=== PATIENT | male | born 2005 | race Caucasian/White ===

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

== ENCOUNTER 2024-03-25 16:49 | Emergency (ER) | payer OTHER, SELFPAY ==
[2024-03-25 16:57] VITALS: BP 146/86; PULSE 96; O2SAT 97
--- NOTE | 2024-03-25 17:18 | ED.GENADULT ---
HPI - General Adult General Chief complaint: Wound/Laceration Stated complaint: thumb pain Source: patient and EMS Mode of arrival: EMS Limitations: no limitations History of Present Illness ED Provider: lizzie HPI narrative: Patient is a 18-year-old right hand dominant male presenting to the ED with complaint of pain and swelling around right thumb nail since this morning. States that he used a kitchen knife as well as his cat's nail to attempt to drain pus from the area. Admits to biting his nails regularly. Was not able to drain any fluid from the area. Denies fevers. MD complaint: thumb pain Onset (ago): hour(s) Treatments prior to arrival: other Related Data Home Medications ?Medication ?Instructions ?Recorded ?Confirmed benztropine 1 mg tablet 1 mg PO BID 02/10/23 09/14/23 clonidine HCl 0.2 mg tablet 0.4 mg PO BEDTIME 02/10/23 09/14/23 escitalopram oxalate 10 mg tablet 10 mg PO QAM 02/10/23 09/14/23 lisdexamfetamine 50 mg capsule 50 mg PO DAILY 02/10/23 09/14/23 (Vyvanse) trazodone 50 mg tablet 100 mg PO BEDTIME PRN insomnia 02/10/23 09/14/23 risperidone 2 mg tablet 2 mg PO BID 09/14/23 09/14/23 Previous Rx's ?Medication ?Instructions ?Recorded levetiracetam 500 mg tablet 500 mg PO BID #60 tabs 07/16/23 (Keppra) amoxicillin 875 mg-potassium 1 tab PO BID #13 tabs 03/25/24 clavulanate 125 mg tablet azithromycin 250 mg tablet 250 mg PO DAILY 4 days #4 tabs 03/25/24 Allergies Allergy/AdvReac Type Severity Reaction Status Date / Time aripiprazole [From Abilify] Allergy Unknown Verified 03/25/24 17:22 sulfamethoxazole Allergy Rash Verified 03/25/24 17:22 [From Bactrim] trimethoprim [From Bactrim] Allergy Rash Verified 03/25/24 17:22 Review of Systems Review of Systems: As per HPI. Yes all other systems are reviewed and are negative Constitutional: Constitutional: Reports as per HPI [facility] Past Medical History Medical History Asthma Depression ADHD (attention deficit hyperactivity disorder) Social History Social History Household Members: Family Household Members Other:: mother father, 2 siblings. Housing: House Do you presently have visiting nurse or other home services: No Unable to assess alcohol history related to: Unknown Alcohol intake: current Alcohol intake frequency: a few times a week Alcohol type: beer and hard liquor Patient Tobacco Use Status: Current everyday Tobacco user Tobacco use type: Cigarette Cigarette Packs Per Day: 1 Cigarettes Per Day: 20.0 Years Smoked: 1 year e-Cigarette/Vaping Use: Currently Using Second Hand Smoke Exposure: No Substance Use Type: Marijuana service: No Sexual orientation: Straight/Heterosexual Physical Exam ED Vital Signs: Vital signs have been reviewed and appear to be correct. Blood pressure normal. Heart rate normal. Respiratory rate normal. Temperature normal. Oxygen saturation normal. Const General: cooperative, healthy appearing and no acute distress Orientation/consciousness: oriented to person, oriented to place, oriented to time and patient oriented x3 Limitations: no limitations HENMT Head: Yes normocephalic and Yes atraumatic Ears: external ears normal General nose exam: Normal external nose present Face and sinus: Yes face symmetric Mouth: oropharynx normal and moist mucous membranes Throat: Yes uvula midline Eyes Pupils: Equal, round and reactive pupils present Neck Neck: Yes normal visual inspection and Yes supple Resp Effort & Inspection: normal respiratory effort and able to speak in complete sentences Auscultation: clear to auscultation bilaterally Cardio Rate: regular rate Rhythm: regular rhythm Heart sounds: S1 normal heart sound present and S2 normal heart sound present GI Palpation (GI): Soft to palpation and nontender Auscultation: normoactive bowel sounds General: Yes no CVA tenderness Back/Spine/Pelvis Back: no CVA tenderness Skin General skin exam: elasticity normal and turgor normal Neuro General: oriented to person, oriented to place, oriented to time, patient oriented x3, moves all extremities, no focal motor deficits and CN's II-XI intact bilaterally Cranial nerves: Yes Equal, round and reactive pupils present Cognition (Neuro): normal cognition Extrem General: Yes full ROM, Yes no pedal edema and Yes no calf tenderness Hand/finger images: 1. erythema and swelling, no fluctuance, no drainage Psych Mental Status: mental status grossly normal Affect: normal affect Thought process: Normal thought process present Medical Decision Making Medical Decision Making MDM Narrative: Patient is a 18-year-old right hand dominant male presenting to the ED with complaint of pain and swelling around right thumb nail since this morning. On exam patient is awake, A+Ox3, VS WNL, afebrile, normal neurological exam without focal deficits, physical exam findings as above. Given reported symptoms and physical exam findings, initial differential includes paronychia, cellulitis. Physical exam not consistent with felon. Given that patient utilized his cat's nail to attempt to drain the infection, will cover with augmentin as well as azithromycin. Instructed patient to soak finger in warm salt water several times daily, assess daily. Instructed him to complete full course of antibiotics even if symptoms improve. Medicated with 1st doses of antibiotics in the ED. Return precautions discussed. Patient verbalized understanding of and agreement plan. Differential Diagnosis Differential Diagnoses: The differential diagnosis associated with the presentation includes As per MDM. External Record Review External record reviewed: Inpatient record, Office record and Outpatient record Prescription Management I considered prescription management with: Antibiotic Discharge Plan Discharge Clinical Impression: Acute paronychia of right thumb Patient Disposition: Home, Self-Care Instructions: Paronychia (ED) Additional Instructions: You have been evaluated in the emergency department today for skin infection around your nail, also known as paronychia. If the area of inflammation was outlined today in the ER, please return to the ER immediately if the area of redness increases beyond the border. Assess the area at least once per day. n Please take both of your prescribed antibiotics as directed for the full course of the medication. We also recommend that you soak your thumb in warm salt water for 10-15 minutes several times daily. You can use Tylenol or ibuprofen per package instructions every 6 hours as needed for pain. If necessary, you can alternate these medications so that you can take one medication every 3 hours. For instance, at noon take ibuprofen, then at 3:00 p.m. take Tylenol, then at 6:00 p.m. take ibuprofen. Please schedule an appointment for follow-up with your primary care physician as soon as possible. Return to the emergency department if you experience recurrent vomiting, fevers greater than 100.4? F, increasing area of redness, warmth around the area, foul-smelling discharge from the area, increased tenderness around the area, or any other concerning symptoms. Prescriptions: New azithromycin 250 mg tablet 250 mg PO DAILY 4 Days Qty: 4 0RF Rx Instructions: start on day 2 of therapy amoxicillin-pot clavulanate 875-125 mg tablet 1 tab PO BID Qty: 13 0RF No Action levetiracetam [Keppra] 500 mg tablet 500 mg PO BID Qty: 60 3RF risperidone 2 mg tablet 2 mg PO BID clonidine HCl 0.2 mg tablet 0.4 mg PO BEDTIME benztropine 1 mg tablet 1 mg PO BID escitalopram oxalate 10 mg tablet 10 mg PO QAM lisdexamfetamine [Vyvanse] 50 mg capsule 50 mg PO DAILY trazodone 50 mg tablet 100 mg PO BEDTIME PRN (Reason: insomnia) Print Language: Greek
[2024-03-25 17:19] VITALS: BP 111/73; PULSE 88; RESP 16; TEMP 36.7; O2SAT 95; BMI 29.0
[2024-03-25] MEDS: Amoxicillin/Potassium Clav 875 MG TABLET PO (17:35)
[2024-03-25] MEDS: Azithromycin 500 MG TABLET PO (17:35)
[2024-03-25 17:39] VITALS: BP 111/73; PULSE 88; RESP 16; TEMP 36.7; O2SAT 95
== END 2024-03-25 17:40 | disposition home or self-care (01) ==
PROVIDERS: Emergency Provider Internal Medicine
DX: L03.011 Cellulitis of right finger (principal); M79.644 Pain in right finger(s)
CPT/HCPCS: 99282; 99283

== ENCOUNTER 2024-03-28 21:30 | Emergency (ER) | payer OTHER, SELFPAY ==
[2024-03-28 21:35] VITALS: BP 119/87; PULSE 91; RESP 20; TEMP 37.1; O2SAT 94; BMI 29.0
[2024-03-28 21:51] LABS: MANUAL DIFF FLAG NO
[2024-03-28 21:53] LABS: Basophils Percent Auto 0.4 % (0-2); Eosinophils Absolute Auto 0.4 X10*3/uL (0.0-0.4); Eosinophils Percent Auto 5.1 % (0-4); Hematocrit 39.4 % (42.0-52.0); Hemoglobin 13.6 g/dl (14.0-18.0); Imm Gran Abs Auto 0.03 X10*3/uL (0.00-0.03); Imm Gran Pct Auto 0.4 % (0.0-0.4); Lymphocytes Absolute Auto 1.3 X10*3/uL (1.2-4.9); Lymphocytes Percent Auto 16.2 % (20-40); Mean Corpuscular HGB Conc 34.5 g/dl (31.0-36.0); Mean Corpuscular Hemoglobin 31.6 pg (27.0-33.0); Mean Corpuscular Volume 91.4 fL (80.0-98.0); Monocytes Absolute Auto 0.4 X10*3/uL (0.1-1.2); Monocytes Percent Auto 5.3 % (2-11); Neutrophils Absolute Auto 5.9 x10*3/uL (2.0-8.3); Neutrophils Percent Auto 72.6 % (45-73); Platelet Count 166 X10*3/uL (160-400); Red Blood Count 4.31 X10*6/uL (4.60-5.80); Red Cell Distribution Width 12.4 % (11.0-16.0); White Blood Count 8.1 X10*3/uL (4.8-10.8)
[2024-03-28 22:09] LABS: Alanine Aminotransferase 12 U/L (0-40); Albumin Level 4.3 g/dL (3.5-5.0); Alkaline Phosphatase 68 U/L (39-117); Anion Gap 13 (12-20); Aspartate Amino Transferase 19 U/L (5-37); Bilirubin Total 0.4 mg/dL (0.0-1.0); Blood Urea Nitrogen 28 mg/dL (9-16); Carbon Dioxide 21 mmol/L (22-29); Chloride 108 mmol/L (96-108); Estimated Glomerular Filt Rate > 60; Glucose Random 124 mg/dL (60-115); Potassium 3.9 mmol/L (3.3-5.1); Sodium 138 mmol/L (135-145); Total Protein 6.9 g/dL (6.5-8.0)
[2024-03-28] MEDS: Acetaminophen 325 MG TABLET 650 MG PO (22:15)
[2024-03-28 23:51] VITALS: BP 124/63; PULSE 77; RESP 22; TEMP 36.8; O2SAT 97
--- NOTE | 2024-03-28 23:54 | PC.NURSE ---
Infection to right thumb. Pt states he was trying to drain pus from right thumb while on antibiotics and used the nail from his cat as a sharp object to do so. presents today with increased redness and swelling.
--- NOTE | 2024-03-29 00:45 | ED.EXTPRO ---
HPI - Extremity Problem General Chief complaint: Extremity Problem Stated complaint: right thumb infection/was here 03/23/24 Time Seen by Provider: 03/29/24 00:10 Source: patient Mode of arrival: ambulatory Limitations: no limitations History of Present Illness ED Provider: Dr. Pasha Quiroz HPI Narrative: 18-year-old male with a history of schizoaffective disorder, depressive type, nicotine dependence, ADHD who presents emergency department for evaluation of right thumb infection. Patient was seen in the emergency department on 03/25/2024 (3 days prior) paronychial cellulitis/abscess. The patient at that time was treated with oral antibiotics (azithromycin and Augmentin) with no improvement of symptoms. He states that his thumb is now more red and swollen than previously. He denied systemic symptoms such as fever, chills, fatigue. Patient did complete his course of antibiotics. Related Data Home Medications ?Medication ?Instructions ?Recorded ?Confirmed benztropine 1 mg tablet 1 mg PO BID 02/10/23 09/14/23 clonidine HCl 0.2 mg tablet 0.4 mg PO BEDTIME 02/10/23 09/14/23 escitalopram oxalate 10 mg tablet 10 mg PO QAM 02/10/23 09/14/23 lisdexamfetamine 50 mg capsule 50 mg PO DAILY 02/10/23 09/14/23 (Vyvanse) trazodone 50 mg tablet 100 mg PO BEDTIME PRN insomnia 02/10/23 09/14/23 risperidone 2 mg tablet 2 mg PO BID 09/14/23 09/14/23 Previous Rx's ?Medication ?Instructions ?Recorded levetiracetam 500 mg tablet 500 mg PO BID #60 tabs 07/16/23 (Keppra) amoxicillin 875 mg-potassium 1 tab PO BID #13 tabs 03/25/24 clavulanate 125 mg tablet azithromycin 250 mg tablet 250 mg PO DAILY 4 days #4 tabs 03/25/24 cephalexin 500 mg capsule 500 mg PO QID 5 days #20 caps 03/29/24 Allergies Allergy/AdvReac Type Severity Reaction Status Date / Time aripiprazole [From Abilify] Allergy Unknown Verified 03/28/24 21:36 sulfamethoxazole Allergy Rash Verified 03/28/24 21:36 [From Bactrim] trimethoprim [From Bactrim] Allergy Rash Verified 03/28/24 21:36 Review of Systems Review of Systems: Yes all other systems are reviewed and are negative [facility] Past Medical History Medical History Asthma Depression ADHD (attention deficit hyperactivity disorder) Social History Social History Household Members: Family Household Members Other:: mother father, 2 siblings. Housing: House Do you presently have visiting nurse or other home services: No Unable to assess alcohol history related to: Unknown Alcohol intake: current Alcohol intake frequency: a few times a week Alcohol type: beer and hard liquor Patient Tobacco Use Status: Current everyday Tobacco user Tobacco use type: Cigarette Cigarette Packs Per Day: 1 Cigarettes Per Day: 20.0 Years Smoked: 1 year Smoked in Last 30 Days: Yes e-Cigarette/Vaping Use: Currently Using Second Hand Smoke Exposure: No Use of substances other than those prescribed or required for medical reasons: Yes Substance Use Type: Marijuana Advance Directives: No Advance Directives Information Provided: No Do you have a plan to hurt others: No Plan service: No Sexual orientation: Straight/Heterosexual Physical Exam Vital Signs: Vital Signs: Last Vital Signs Temp 98.2 F 03/28/24 23:51 Pulse 77 03/28/24 23:51 Resp 22 H 03/28/24 23:51 BP 124/63 03/28/24 23:51 Pulse Ox 97 03/28/24 23:51 O2 Del Method Room Air 03/28/24 23:51 BMI result Body Mass Index 29.0 Vital signs revealed an elevated respiratory rate of 22 otherwise unremarkable Exam: Right thumb: Patient has erythema to the distal phalanx of the right thumb with a paronychia abscess on the ulnar aspect of the thumb, patient does have erythema over the thumb pad with soft tissue swelling and tenderness. Patient's thumb is neurovascularly intact. Medications Administered Discontinued Medications Generic Name Dose Route Start Last Admin Trade Name Freq PRN Reason Stop Dose Admin Acetaminophen 650 mg 03/28/24 22:13 03/28/24 22:15 Acetaminophen 325 Mg Tablet PO 03/28/24 22:14 650 mg ONCE ONE Administration Medical Decision Making Medical Decision Making MDM Narrative: 18-year-old male with a history of schizoaffective disorder, depressive type, nicotine dependence, ADHD who presents emergency department for evaluation of right thumb infection, he was evaluated on 03/25/2022 and 4 and started on antibiotics with no improvement of symptoms. Exam is now consistent with worsening paronychial abscess. Thumb is neurovascularly intact. Differential diagnosis: ?Includes but is not limited to right thumb paronychia abscess, felon, cellulitis Course: My interpretation patient's laboratory evaluation as follows: CBC was normal. CMP revealed an elevated BUN of 28 with a normal creatinine of 1.0 and elevated glucose of 124. There was a small amount of purulent material that drained from the paronychial abscess and there was significant bleeding secondary to a small skin bleeder. The abscess cavity was packed with quarter-inch iodoform gauze and a pressure dressing was applied. Given the soft tissue swelling and erythema of the thumb the patient will need to follow-up with orthopedic group hand surgeon to make sure that he does not have a felon. I did discuss this with him. Patient was given a prescription for Keflex 500 mg 4 times a day for 5 days. He was advised to remove the dressing in 24 hours and remove the packing. He was advised to apply warm compresses 4 times a day for the next 2-3 days to increase the blood flow of the area and help the healing process. He was advised to take ibuprofen and Tylenol for pain He was given printed and verbal instructions and discharged home. Admission/Observation Consideration of admission/observation: Escalation of care including admission/observation considered (Yes) Lab Data MDM Lab Attestation statement: I reviewed the patient's lab results. 03/28/24 21:45 03/28/24 21:45 Labs: Lab Results 03/28/24 Range/Units 21:45 WBC 8.1 (4.8-10.8) X10*3/uL RBC 4.31 L (4.60-5.80) X10*6/uL Hgb 13.6 L (14.0-18.0) g/dl Hct 39.4 L (42.0-52.0) % MCV 91.4 (80.0-98.0) fL MCH 31.6 (27.0-33.0) pg MCHC 34.5 (31.0-36.0) g/dl RDW 12.4 (11.0-16.0) % Plt Count 166 (160-400) X10*3/uL MPV 10.0 (9.4-12.4) fL Immature Gran % (Auto) 0.4 (0.0-0.4) % Neut % (Auto) 72.6 (45-73) % Lymph % (Auto) 16.2 L (20-40) % [facility] % (Auto) 5.3 (2-11) % Eos % (Auto) 5.1 H (0-4) % Baso % (Auto) 0.4 (0-2) % Lymph # (Auto) 1.3 (1.2-4.9) X10*3/uL [facility] # (Auto) 0.4 (0.1-1.2) X10*3/uL Eos # (Auto) 0.4 (0.0-0.4) X10*3/uL Baso # (Auto) 0.0 (0.0-0.2) X10*3/uL Abs Immat Gran (auto) 0.03 (0.00-0.03) X10*3/uL Absolute Neuts (auto) 5.9 (2.0-8.3) x10*3/uL Absolute Nucleated RBC 0.000 (0.0-0.012) X10*3/uL Nucleated RBC % (auto) 0.0 (0.0-0.2) /100WBC Sodium 138 (135-145) mmol/L Potassium 3.9 (3.3-5.1) mmol/L Chloride 108 (96-108) mmol/L Carbon Dioxide 21 L (22-29) mmol/L Anion Gap 13 (12-20) BUN 28 H (9-16) mg/dL Creatinine 1.01 (0.5-1.4) mg/dL Estim Creat Clear Calc 118.0 Estimated GFR > 60 Random Glucose 124 H (60-115) mg/dL Calcium 9.0 D (8.4-10.2) mg/dL Total Bilirubin 0.4 (0.0-1.0) mg/dL AST 19 (5-37) U/L ALT 12 (0-40) U/L Alkaline Phosphatase 68 (39-117) U/L Total Protein 6.9 (6.5-8.0) g/dL Albumin 4.3 (3.5-5.0) g/dL Prescription Management I considered prescription management with: Antibiotic Procedures Abscess I/D Site: hand (Right thumb paronychial abscess) Side (if applicable): right Local Anesthetic: lidocaine 1% Amount of anesthesia used (mL): 5 Technique: incised with blade (#11 Scalpel) Amount of fluid expressed (mL): 1 Sent for culture/gram staining?: No Irrigation: No Packing used?: plain Complications: bleeding (Pressure dressing applied with Coban) Discharge Plan Discharge Clinical Impression: Acute paronychia of right thumb Patient Disposition: Home, Self-Care Instructions: Paronychia (ED) Additional Instructions: The abscess of your right thumb was incised, drained and packed. Leave the dressing on for 24 hours then remove the dressing and the packing. Once the dressing is removed, apply a warm compress or soak your thumb in warm water for 15 minutes 4 times a day for the next 2-3 days this will help the healing process. Take Keflex (cephalexin) 500 mg pills, 1 pill 3 times a day for 4 days. Take ibuprofen 200 mg pills, 2 pills every 6 hours as needed for pain or fever. Take Tylenol (acetaminophen) 500 mg pills, 2 pills every 6 hours as needed for pain or fever. Follow-up with your doctor in with our hand surgeon. At this time I do not think that the thumb finger pad is infected however it is important that you follow-up with a hand surgeon to be evaluated for possible infection of the finger pad (tata). Please return to the emergency department if your symptoms get worse or if you develop any symptoms that are concerning to you. Prescriptions: New cephalexin 500 mg capsule 500 mg PO QID 5 Days Qty: 20 0RF No Action levetiracetam [Keppra] 500 mg tablet 500 mg PO BID Qty: 60 3RF risperidone 2 mg tablet 2 mg PO BID clonidine HCl 0.2 mg tablet 0.4 mg PO BEDTIME benztropine 1 mg tablet 1 mg PO BID escitalopram oxalate 10 mg tablet 10 mg PO QAM lisdexamfetamine [Vyvanse] 50 mg capsule 50 mg PO DAILY trazodone 50 mg tablet 100 mg PO BEDTIME PRN (Reason: insomnia) azithromycin 250 mg tablet 250 mg PO DAILY 4 Days Qty: 4 0RF Rx Instructions: start on day 2 of therapy amoxicillin-pot clavulanate 875-125 mg tablet 1 tab PO BID Qty: 13 0RF Referrals: Pura Merrill MD [Physician] - 3 days (Right thumb paronychial abscess incised , drained, packed. Patient also has swelling of the finger pad, needs evaluation for possible felon) Print Language: Danish
[2024-03-29] MEDS: Lidocaine HCl 1 % MPF 5 ML VIAL INFILTRATI (00:51)
--- NOTE | 2024-03-29 00:52 | PC.NURSE ---
lidocaine administered by provider
[2024-03-29] MEDS: cephALEXin 500 MG CAPSULE PO (01:29)
[2024-03-29 01:31] VITALS: BP 124/63; PULSE 77; RESP 22; TEMP 36.8; O2SAT 97
== END 2024-03-29 01:33 | disposition home or self-care (01) ==
PROVIDERS: Emergency Provider Emergency Medicine Emergency Medical Services
DX: L03.011 Cellulitis of right finger (principal); M79.644 Pain in right finger(s)
CPT/HCPCS: 10060; 36415; 80053; 85025; 99284; J2003

== ENCOUNTER 2024-05-22 14:46 | Emergency (ER) | payer OTHER, SELFPAY ==
--- NOTE | ~2024-05-22 | XR_ITS ---
EXAMINATION: XR CHEST CLINICAL INFORMATION: SOB COMPARISON: 07/22/21 TECHNIQUE: 2 views of the chest were obtained. FINDINGS: No significant abnormality is noted involving the heart, lungs, mediastinum, bony thorax or soft tissues. XR/XR chest 2V IMPRESSION: Unremarkable examination. Electronically signed by: Guerita Saenz MD 05/22/2024 04:16 PM [facility]
--- NOTE | 2024-05-22 15:06 | ED.SOB ---
HPI - SOB/Dyspnea General Chief Complaint: Dyspnea Stated Complaint: Diff Breathing Time Seen by Provider: 05/22/24 17:10 Source: patient and RN notes reviewed Mode of arrival: ambulatory Limitations: no limitations History of Present Illness ED Provider: Flori Bower PA-C HPI Narrative: This is a 18-year-old male, with a history of ADHD, schizoaffective disorder, and asthma, who presents emergency department with complaints of shortness of breath, dry cough, and congestion starting yesterday. Patient reports that he feels as though on breathing through a straw with a hole in it . He has been using his inhalers at home without relief. Denies any fevers, chills, chest pain, abdominal pain, nausea, vomiting or diarrhea. No sick contacts. No other complaints or concerns at this time. MD elicited complaint: shortness of breath, cough and asthma attack Severity: moderate Exacerbating factors: nothing Relieving factors: nothing Known history of: asthma Associated symptoms: cough and wheezing Treatment prior to arrival: none Related Data Home Medications ?Medication ?Instructions ?Recorded ?Confirmed benztropine 1 mg tablet 1 mg PO BID 02/10/23 09/14/23 clonidine HCl 0.2 mg tablet 0.4 mg PO BEDTIME 02/10/23 09/14/23 escitalopram oxalate 10 mg tablet 10 mg PO QAM 02/10/23 09/14/23 lisdexamfetamine 50 mg capsule 50 mg PO DAILY 02/10/23 09/14/23 (Vyvanse) trazodone 50 mg tablet 100 mg PO BEDTIME PRN insomnia 02/10/23 09/14/23 risperidone 2 mg tablet 2 mg PO BID 09/14/23 09/14/23 Previous Rx's ?Medication ?Instructions ?Recorded levetiracetam 500 mg tablet 500 mg PO BID #60 tabs 07/16/23 (Keppra) amoxicillin 875 mg-potassium 1 tab PO BID #13 tabs 03/25/24 clavulanate 125 mg tablet azithromycin 250 mg tablet 250 mg PO DAILY 4 days #4 tabs 03/25/24 cephalexin 500 mg capsule 500 mg PO QID 5 days #20 caps 03/29/24 prednisone 20 mg tablet 40 mg (2 x 20 mg) PO DAILY 5 days 05/22/24 #10 tabs Allergies Allergy/AdvReac Type Severity Reaction Status Date / Time aripiprazole [From Abilify] Allergy Unknown Verified 05/22/24 15:08 sulfamethoxazole Allergy Rash Verified 05/22/24 15:08 [From Bactrim] trimethoprim [From Bactrim] Allergy Rash Verified 05/22/24 15:08 Review of Systems Review of Systems: Yes all other systems are reviewed and are negative Constitutional: Constitutional: Reports as per [facility] Past Medical History Attestation statement: The following information was validated with the patient. Medical History Asthma Depression ADHD (attention deficit hyperactivity disorder) Social History Social History Household Members: Family Household Members Other:: mother father, 2 siblings. Housing: House Do you presently have visiting nurse or other home services: No Unable to assess alcohol history related to: Unknown Alcohol intake: current Alcohol intake frequency: a few times a week Alcohol type: beer and hard liquor Patient Tobacco Use Status: Current everyday Tobacco user Tobacco use type: Cigarette Cigarette Packs Per Day: 1 Cigarettes Per Day: 20.0 Years Smoked: 1 year e-Cigarette/Vaping Use: Currently Using Second Hand Smoke Exposure: No Substance Use Type: Marijuana Advance Directives: No Advance Directives Information Provided: No Do you have a plan to hurt others: No Plan service: No Sexual orientation: Straight/Heterosexual Physical Exam Vital Signs: Vital Signs: Last Vital Signs Temp 97.6 F 05/22/24 15:07 Pulse 101 H 05/22/24 15:31 Resp 18 05/22/24 15:31 BP 147/78 H 05/22/24 15:07 Pulse Ox 94 05/22/24 15:07 O2 Del Method Room Air 05/22/24 15:07 BMI result Body Mass Index 28.2 Const: General: cooperative, comfortable and no acute distress Orientation/consciousness: patient oriented x3 Limitations: no limitations HEENT: Head: Yes normal to inspection, Yes normocephalic and Yes atraumatic Ears: hearing grossly normal bilaterally General nose exam: Normal external nose present Face and sinus: Yes normal facial exam Mouth: Normal oral and palatal mucosa present, oropharynx normal and moist mucous membranes Throat: Yes posterior oropharynx normal Eyes: General: appearance normal, both eyes and all related structures Eyelids: Yes eyelids normal Conjunctivae: conjunctivae normal Sclerae: sclerae normal Pupils: Equal, round and reactive pupils present EOM: EOMs intact bilaterally Neck: Neck: Yes normal visual inspection, Yes full ROM and Yes no lymphadenopathy Lymphatic: no lymphadenopathy noted Chest: Chest palpation & inspection: normal inspection of the chest Resp: Other: lungs with inspiratory and expiratory wheezes noted throughout all lung maurer. Effort & Inspection: normal respiratory effort and able to speak in complete sentences Cardio: Rate: regular rate Rhythm: regular rhythm Heart sounds: S1 normal heart sound present and S2 normal heart sound present GI: Inspection: Yes normal to inspection Skin: General skin exam: no rashes or lesions noted Trauma: no lacerations or abrasions Wounds: no wounds Neuro: General: patient oriented x3 and moves all extremities Cranial nerves: Yes Equal, round and reactive pupils present Extrem: General: Yes normal to inspection Right upper extremity: normal to inspection Left upper extremity: normal to inspection Right lower extremity: normal to inspection Left lower extremity: normal to inspection Course Course Course Narrative: This is an RME: Additional HPI, ROS, PE not included below will be deferred to primary provider. RME assessment and note performed by: Flori Bower PA-C This is a [age]-male, with a hx of asthma, who presents to the ER with a complaint of SOB since yesterday. Reports cough, no fevers. No CP. Has been using his inhalers at home with minimal relief. Plan: XR, ed bronch protocol, viral swabs Medications Administered Discontinued Medications Generic Name Dose Route Start Last Admin Trade Name Freq PRN Reason Stop Dose Admin Albuterol Sulfate 8 puff 05/22/24 15:27 05/22/24 15:30 Albuterol Sulfate 90 Mcg 8 Gm Inhaler INHALE 05/22/24 15:28 8 puff ONCE ONE Administration Medical Decision Making Medical Decision Making MDM Narrative: This is a 18-year-old male, with a history of asthma, who presents emergency department with complaints of shortness for breath, congestion starting yesterday. He has a history of asthma and symptoms feel similar. He is speaking in full sentences under no acute distress.On arrival, vital signs revealing pulse 101, oxygen saturation 94% on room air. He is afebrile and speaking full sentences. Lungs are revealing inspiratory and expiratory wheezes noted throughout all lung maurer. x-ray was reviewed without any acute findings. Viral swabs negative. Patient given several puffs of albuterol, he is feeling much better. Lungs re-evaluated, he still has faint expiratory wheeze noted through the left lower base. He states that he is feeling much better and would like to be discharged. Patient will be started on a course of prednisone. Encouraged to continue using albuterol inhaler. Given strict return precautions. He understands and agrees with plan. Patient stable for discharge. Differential Diagnosis Differential Diagnoses: The differential diagnosis associated with the presentation includes Asthma, URI, pneumonia, reactive airway disease Lab Data MDM Lab Attestation statement: I reviewed the patient's lab results. negative viral swabs Labs: Lab Results 05/22/24 Range/Units 15:28 Influenza Type A (PCR) NEGATIVE (Negative) Influenza Type B (PCR) NEGATIVE (Negative) RSV RNA Qual (PCR) NEGATIVE (Negative) SARS-CoV-2 RNA (RT-PCR) NEGATIVE (Negative) Radiology Impression Discussion of test interpretation with radiology: I have reviewed the radiologist's reading. Radiologist Impression: [place] [id number] XRay Report Signed Patient: Miguel A Hankins MR#: [id number] : 2005 Acct:[id number] Age/Sex: 18 / M ADM Date: 05/22/24 Loc: .ED Attending Dr: Ordering Physician: Flori Bower Date of Service: 05/22/24 Procedure(s): XR chest 2V Accession Number(s): [id number] cc: Flori Bower; Physician,Unknown ~ EXAMINATION: XR CHEST CLINICAL INFORMATION: SOB COMPARISON: 07/22/21 TECHNIQUE: 2 views of the chest were obtained. FINDINGS: No significant abnormality is noted involving the heart, lungs, mediastinum, bony thorax or soft tissues. XR/XR chest 2V IMPRESSION: Unremarkable examination. Electronically signed by: Guerita Saenz MD 05/22/2024 04:16 PM [facility] Dictated By: Guerita Saenz MD Discharge Plan Discharge Clinical Impression: Asthma with exacerbation, Upper respiratory infection Patient Disposition: Home, Self-Care Instructions: Asthma (ED), Wheezing (ED), How Your Lungs Work (ED) Additional Instructions: You were seen in the emergency department due to shortness of breath. Your chest x-ray does not show a pneumonia. You likely have a virus causing you to have the symptoms. Please drink plenty of fluids get plenty of rest. Continue taking the albuterol inhaler as prescribed. Please take prednisone as directed, finish the entire course. I sent your prescription to [facility] pharmacy on [address] in [place]. If any new or worsening symptoms occur including but not limited to severe chest pain, shortness of breath, please seek emergent care. Prescriptions: New prednisone 20 mg tablet 40 mg PO DAILY 5 Days Qty: 10 0RF No Action levetiracetam [Keppra] 500 mg tablet 500 mg PO BID Qty: 60 3RF risperidone 2 mg tablet 2 mg PO BID cephalexin 500 mg capsule 500 mg PO QID 5 Days Qty: 20 0RF clonidine HCl 0.2 mg tablet 0.4 mg PO BEDTIME benztropine 1 mg tablet 1 mg PO BID escitalopram oxalate 10 mg tablet 10 mg PO QAM lisdexamfetamine [Vyvanse] 50 mg capsule 50 mg PO DAILY trazodone 50 mg tablet 100 mg PO BEDTIME PRN (Reason: insomnia) azithromycin 250 mg tablet 250 mg PO DAILY 4 Days Qty: 4 0RF Rx Instructions: start on day 2 of therapy amoxicillin-pot clavulanate 875-125 mg tablet 1 tab PO BID Qty: 13 0RF Discharge Date/Time: 05/22/24 17:38 Print Language: [place] Citizen
[2024-05-22 15:07] VITALS: BP 147/78; PULSE 101; RESP 20; TEMP 36.4; O2SAT 94; BMI 28.2
[2024-05-22] MEDS: Albuterol Sulfate 90 MCG 8 GM INHALER 8 PUFF INHALE (15:30)
[2024-05-22 15:31] VITALS: PULSE 101; RESP 18; O2SAT 94
[2024-05-22 16:10] LABS: Influenza A PCR NEGATIVE (Negative); Influenza B PCR NEGATIVE (Negative); Resp Syncy Virus RNA Qual PCR NEGATIVE (Negative); SARS COV2 PCR INHOUSE NEGATIVE (Negative)
== END 2024-05-22 17:38 | disposition home or self-care (01) ==
PROVIDERS: Physician Assistant Medical; Emergency Provider Emergency Medicine
DX: J45.901 Unspecified asthma with (acute) exacerbation (principal); J06.9 Acute upper respiratory infection, unspecified; R06.00 Dyspnea, unspecified; R05.9 Cough, unspecified; F17.210 Nicotine dependence, cigarettes, uncomplicated; Z03.818 Encounter for observation for suspected exposure to other biological agents ruled out; Z79.899 Other long term (current) drug therapy
CPT/HCPCS: 0241U; 71046; 94640; 99283; 99284

== ENCOUNTER 2024-08-01 01:18 | Emergency (ER) | payer OTHER, SELFPAY ==
[2024-08-01 01:23] VITALS: BP 186/110; PULSE 90
[2024-08-01 01:48] VITALS: BP 119/58; PULSE 60; RESP 16; TEMP 37.3; O2SAT 96; BMI 28.2
[2024-08-01 01:51] VITALS: BP 119/58; PULSE 60; RESP 16; TEMP 37.3; O2SAT 96
--- NOTE | 2024-08-01 01:53 | PC.NURSE ---
{Patient calm and cooperative, security helped with changed over, belongings stored away. patient reporting no SI/HI cell phone at bedside
[2024-08-01 02:20] LABS: MANUAL DIFF FLAG NO
[2024-08-01 02:22] LABS: Basophils Percent Auto 0.5 % (0-2); Eosinophils Absolute Auto 0.4 X10*3/uL (0.0-0.4); Eosinophils Percent Auto 6.6 % (0-4); Hematocrit 37.4 % (42.0-52.0); Hemoglobin 13.3 g/dl (14.0-18.0); Imm Gran Abs Auto 0.03 X10*3/uL (0.00-0.03); Imm Gran Pct Auto 0.5 % (0.0-0.4); Lymphocytes Absolute Auto 1.4 X10*3/uL (1.2-4.9); Lymphocytes Percent Auto 23.2 % (20-40); Mean Corpuscular HGB Conc 35.6 g/dl (31.0-36.0); Mean Corpuscular Hemoglobin 30.7 pg (27.0-33.0); Mean Corpuscular Volume 86.4 fL (80.0-98.0); Mean Platelet Volume 10.1 fL (9.4-12.4); Monocytes Absolute Auto 0.4 X10*3/uL (0.1-1.2); Monocytes Percent Auto 7.1 % (2-11); Neutrophils Absolute Auto 3.7 x10*3/uL (2.0-8.3); Neutrophils Percent Auto 62.1 % (45-73); Platelet Count 147 X10*3/uL (160-400); Red Blood Count 4.33 X10*6/uL (4.60-5.80); Red Cell Distribution Width 12.5 % (11.0-16.0); White Blood Count 5.9 X10*3/uL (4.8-10.8)
[2024-08-01 02:43] LABS: Alanine Aminotransferase 9 U/L (0-40); Alkaline Phosphatase 58 U/L (39-117); Anion Gap 14 (12-20); Aspartate Amino Transferase 18 U/L (5-37); Bilirubin Total 0.2 mg/dL (0.0-1.0); Blood Urea Nitrogen 18 mg/dL (9-16); Calcium 9.1 mg/dL (8.4-10.2); Carbon Dioxide 20 mmol/L (22-29); Chloride 109 mmol/L (96-108); Creatinine Clr Calc Pharmacy 154.8; Estimated Glomerular Filt Rate > 60; Glucose Random 134 mg/dL (60-115); Potassium 3.9 mmol/L (3.3-5.1); Sodium 139 mmol/L (135-145); Total Protein 6.8 g/dL (6.5-8.0)
--- NOTE | 2024-08-01 03:00 | MHC.EDTECH ---
Addendum entered by Connie Corona 08/01/24 04:56: SHELF # 1 Original Note: This tech took over care of pt at 0300AM,rounded and introduced self to patient,per previous tech patients belongings are locked in the rohini port and pt is allowed to keep cellphone
[2024-08-01 03:05] LABS: Amphetamine Screen Urine Not Detected (Not Detect); Barbiturates, Urine Not Detected (Not Detect); Benzodiazepines Screen Urine Not Detected (Not Detect); Buprenorphine Scr Not Detected (Not Detect); Cannabinoid Screen Urine POSITIVE (Not Detect); Cocaine Screen Urine Not Detected (Not Detect); Fentanyl, urine Not Detected (Not Detect); Methadone Screen, Urine Not Detected (Not Detect); Opiate Screen Urine Not Detected (Not Detect); Oxycodone Screen Urine Not Detected (Not Detect); Phencyclidine Screen Urine Not Detected (Not Detect)
--- NOTE | 2024-08-01 06:05 | ED.PSYCH ---
HPI - Psych General Chief Complaint: Psychiatric Symptoms Stated Complaint: schizo effective + ETOH(weed) Time Seen by Provider: 08/01/24 05:54 Source: patient Mode of arrival: ambulatory Limitations: no limitations History of Present Illness ED Provider: HPI Narrative: Patient with schizoaffective disorder with depression, ADHD been having increased argument with parents wanted to get of the house you do thoughts of not feeling safe denies any SI or HI wanted to go to respite Related Data Home Medications ?Medication ?Instructions ?Recorded ?Confirmed benztropine 1 mg tablet 1 mg PO BID 02/10/23 09/14/23 clonidine HCl 0.2 mg tablet 0.4 mg PO BEDTIME 02/10/23 09/14/23 escitalopram oxalate 10 mg tablet 10 mg PO QAM 02/10/23 09/14/23 lisdexamfetamine 50 mg capsule 50 mg PO DAILY 02/10/23 09/14/23 (Vyvanse) trazodone 50 mg tablet 100 mg PO BEDTIME PRN insomnia 02/10/23 09/14/23 risperidone 2 mg tablet 2 mg PO BID 09/14/23 09/14/23 Previous Rx's ?Medication ?Instructions ?Recorded levetiracetam 500 mg tablet 500 mg PO BID #60 tabs 07/16/23 (Keppra) amoxicillin 875 mg-potassium 1 tab PO BID #13 tabs 03/25/24 clavulanate 125 mg tablet azithromycin 250 mg tablet 250 mg PO DAILY 4 days #4 tabs 03/25/24 cephalexin 500 mg capsule 500 mg PO QID 5 days #20 caps 03/29/24 prednisone 20 mg tablet 40 mg (2 x 20 mg) PO DAILY 5 days 05/22/24 #10 tabs Allergies Allergy/AdvReac Type Severity Reaction Status Date / Time aripiprazole [From Abilify] Allergy Unknown Verified 08/01/24 01:50 sulfamethoxazole Allergy Rash Verified 08/01/24 01:50 [From Bactrim] trimethoprim [From Bactrim] Allergy Rash Verified 08/01/24 01:50 Review of Systems Review of Systems: Yes all other systems are reviewed and are negative PMFSH Past Medical History Medical History Asthma Depression ADHD (attention deficit hyperactivity disorder) Social History Social History Household Members: Family Household Members Other:: mother father, 2 siblings. Housing: House Do you presently have visiting nurse or other home services: No Unable to assess alcohol history related to: Unknown Alcohol intake: current Alcohol intake frequency: a few times a week Alcohol type: hard liquor Patient Tobacco Use Status: Current everyday Tobacco user Tobacco use type: Cigarette Cigarette Packs Per Day: 1 Cigarettes Per Day: 20.0 Years Smoked: 1 year Smoked in Last 30 Days: Yes e-Cigarette/Vaping Use: Currently Using Second Hand Smoke Exposure: No Use of substances other than those prescribed or required for medical reasons: Yes Substance Use Type: Marijuana Advance Directives: No Advance Directives Information Provided: Yes service: No Sexual orientation: Straight/Heterosexual Physical Exam Vital Signs: Vital Signs: Last Vital Signs Temp 97.5 F 08/01/24 06:49 Pulse 75 08/01/24 06:49 Resp 16 08/01/24 06:49 BP 105/59 L 08/01/24 06:49 Pulse Ox 96 08/01/24 06:49 O2 Del Method Room Air 08/01/24 06:49 BMI result Body Mass Index 28.2 Appearance: Alert. Oriented X3. No acute distress. Eyes: PERRLA, No Nystagmus ENT: Pharynx normal. Oral Mucosa moist Neck: Normal inspection. Neck supple. CVS: Normal heart rate and rhythm. Pulses normal. Respiratory: No respiratory distress. Equal air entry bilateral, no wheezing/rales/rhonchi Abdomen: Soft and nontender. Bowel sounds are present, no mass palpable, no CVA tenderness Skin: Skin warm and dry. Normal skin color. Normal skin turgor. Extremities: No lower extremity edema. No calf tenderness psych: Feel depressed denies any SI or HI at this time no hallucination Neuro: Oriented X 3. No motor deficit. No sensory deficit.No cerebellar signs , cranial nerves II-XII intact Medical Decision Making Medical Decision Making MDM Narrative: Patient has schizoaffective disorder with depression feels unsafe at home will get care team involved Lab Data MDM Lab Attestation statement: I reviewed the patient's lab results. 08/01/24 02:16 08/01/24 02:16 Labs: Lab Results 08/01/24 08/01/24 Range/Units 02:16 02:49 WBC 5.9 (4.8-10.8) X10*3/uL RBC 4.33 L (4.60-5.80) X10*6/uL Hgb 13.3 L (14.0-18.0) g/dl Hct 37.4 L (42.0-52.0) % MCV 86.4 (80.0-98.0) fL MCH 30.7 (27.0-33.0) pg MCHC 35.6 (31.0-36.0) g/dl RDW 12.5 (11.0-16.0) % Plt Count 147 L (160-400) X10*3/uL MPV 10.1 (9.4-12.4) fL Immature Gran % (Auto) 0.5 H (0.0-0.4) % Neut % (Auto) 62.1 (45-73) % Lymph % (Auto) 23.2 (20-40) % [place] % (Auto) 7.1 (2-11) % Eos % (Auto) 6.6 H (0-4) % Baso % (Auto) 0.5 (0-2) % Lymph # (Auto) 1.4 (1.2-4.9) X10*3/uL [place] # (Auto) 0.4 (0.1-1.2) X10*3/uL Eos # (Auto) 0.4 (0.0-0.4) X10*3/uL Baso # (Auto) 0.0 (0.0-0.2) X10*3/uL Abs Immat Gran (auto) 0.03 (0.00-0.03) X10*3/uL Absolute Neuts (auto) 3.7 (2.0-8.3) x10*3/uL Absolute Nucleated RBC 0.000 (0.0-0.012) X10*3/uL Nucleated RBC % (auto) 0.0 (0.0-0.2) /100WBC Sodium 139 (135-145) mmol/L Potassium 3.9 (3.3-5.1) mmol/L Chloride 109 H (96-108) mmol/L Carbon Dioxide 20 L (22-29) mmol/L Anion Gap 14 (12-20) BUN 18 H (9-16) mg/dL Creatinine 0.76 (0.5-1.4) mg/dL Estim Creat Clear Calc 154.8 Estimated GFR > 60 Random Glucose 134 H (60-115) mg/dL Calcium 9.1 (8.4-10.2) mg/dL Total Bilirubin 0.2 (0.0-1.0) mg/dL AST 18 (5-37) U/L ALT 9 (0-40) U/L Alkaline Phosphatase 58 (39-117) U/L Total Protein 6.8 (6.5-8.0) g/dL Albumin 4.0 (3.5-5.0) g/dL Urine Opiates Screen Not Detected (Not Detect) Ur Buprenorphine Scrn Not Detected (Not Detect) ng/mL Ur Oxycodone Screen Not Detected (Not Detect) ng/mL Urine Methadone Screen Not Detected (Not Detect) ng/mL Urine Fentanyl Screen Not Detected (Not Detect) Ur Barbiturates Screen Not Detected (Not Detect) Ur Phencyclidine Scrn Not Detected (Not Detect) Ur Amphetamines Screen Not Detected (Not Detect) U Benzodiazepines Scrn Not Detected (Not Detect) Urine Cocaine Screen Not Detected (Not Detect) U Marijuana (THC) Screen POSITIVE H (Not Detect) Discharge Plan Discharge Clinical Impression: ADHD (attention deficit hyperactivity disorder), Nicotine dependence, Schizoaffective disorder, depressive type Patient Disposition: Still a Patient Prescriptions: No Action levetiracetam [Keppra] 500 mg tablet 500 mg PO BID Qty: 60 3RF risperidone 2 mg tablet 2 mg PO BID cephalexin 500 mg capsule 500 mg PO QID 5 Days Qty: 20 0RF clonidine HCl 0.2 mg tablet 0.4 mg PO BEDTIME benztropine 1 mg tablet 1 mg PO BID escitalopram oxalate 10 mg tablet 10 mg PO QAM lisdexamfetamine [Vyvanse] 50 mg capsule 50 mg PO DAILY trazodone 50 mg tablet 100 mg PO BEDTIME PRN (Reason: insomnia) azithromycin 250 mg tablet 250 mg PO DAILY 4 Days Qty: 4 0RF Rx Instructions: start on day 2 of therapy amoxicillin-pot clavulanate 875-125 mg tablet 1 tab PO BID Qty: 13 0RF prednisone 20 mg tablet 40 mg PO DAILY 5 Days Qty: 10 0RF Interventions: [place]-Suicide Risk Severity Scale Last Done: 08/01/24 02:46 Print Language: Bahamian
[2024-08-01 06:49] VITALS: BP 105/59; PULSE 75; RESP 16; TEMP 36.4; O2SAT 96
--- NOTE | 2024-08-01 12:03 | PC.NURSE ---
patient has been calm and cooperative in pod. patient doing puzzles and drawing. patient is awake, alert and oriented. awaiting care team assessment
== END 2024-08-01 13:17 | disposition home or self-care (01) ==
PROVIDERS: Emergency Provider Internal Medicine
DX: F90.9 Attention-deficit hyperactivity disorder, unspecified type (principal); F25.1 Schizoaffective disorder, depressive type; F17.210 Nicotine dependence, cigarettes, uncomplicated; F12.90 Cannabis use, unspecified, uncomplicated; J45.909 Unspecified asthma, uncomplicated; Z72.89 Other problems related to lifestyle; Z63.8 Other specified problems related to primary support group; Z79.899 Other long term (current) drug therapy
CPT/HCPCS: 36415; 80053; 80307; 85025; 99284; S9485